=== PATIENT | male | born 1950 | race Caucasian/White ===

== ENCOUNTER 2020-07-18 10:52 | Outpatient (RCR) | payer MEDICARE, OTHER, SELFPAY | END 2020-08-02 14:07 | disposition home or self-care (01) | LOC: HO.WCC 10:52 | PROVIDERS: PCP Physician Assistant; Visit Provider Physician Assistant Surgical | DX: E11.621 Type 2 diabetes mellitus with foot ulcer (principal); L97.512 Non-pressure chronic ulcer of other part of right foot with fat layer exposed; M20.41 Other hammer toe(s) (acquired), right foot; Z86.711 Personal history of pulmonary embolism | CPT/HCPCS: 11042; 99212 ==

== ENCOUNTER 2022-07-10 12:37 | Outpatient (RCR) | payer MEDICARE, OTHER, SELFPAY | END 2022-08-07 13:37 | disposition home or self-care (01) | LOC: HO.WCC 12:37 | PROVIDERS: PCP Family Medicine; Visit Provider Surgery | DX: Z09 Encounter for follow-up examination after completed treatment for conditions other than malignant neoplasm (principal); R60.0 Localized edema; B35.8 Other dermatophytoses; Z86.31 Personal history of diabetic foot ulcer | CPT/HCPCS: 99212; 99213 ==

== ENCOUNTER 2024-05-25 11:03 | Outpatient (AMB) | payer MEDICARE, OTHER, SELFPAY ==
[2024-05-25 11:24] VITALS: BP 143/62; PULSE 78; O2SAT 96; BMI 28.7
--- NOTE | 2024-05-25 11:24 | A.OFFVIS_ITS ---
Vital Signs 3 05/25/24 11:24 Height 5 ft 8 in Weight 189 lb BMI 28.7 BP 143/62 H Blood Pressure Location Lt brachial Position Sitting Pulse 78 Pulse Source Pulse Oximeter Pulse Oximetry (%) 96 Oxygen Delivery Method Room Air Intake Visit Reasons: Lumbar Ridiculopathy Allergies amlodipine Adverse Reaction (Mild, Verified 05/25/24 11:36) Fatigued atenolol Adverse Reaction (Mild, Verified 05/25/24 11:36) Fatigued baclofen Adverse Reaction (Mild, Verified 05/25/24 11:36) Fatigued grapefruit Adverse Reaction (Mild, Verified 05/25/24 11:36) Fatigued lisinopril Adverse Reaction (Mild, Verified 05/25/24 11:36) Fatigued losartan Adverse Reaction (Mild, Verified 05/25/24 11:36) Fatigued orange juice Adverse Reaction (Mild, Verified 05/25/24 11:36) Fatigued oxymetazoline [From Afrin (oxymetazoline)] Adverse Reaction (Mild, Verified 05/25/24 11:36) Fatigued pineapple Adverse Reaction (Mild, Verified 05/25/24 11:36) Fatigued pregabalin [From Lyrica] Adverse Reaction (Mild, Verified 05/25/24 11:36) Sleep walking solifenacin Adverse Reaction (Mild, Verified 05/25/24 11:36) Fatigued tomato Adverse Reaction (Mild, Verified 05/25/24 11:36) Fatigued Medication List - Last Reconciled 05/25/24 by Valentina Rubio acetaminophen (Tylenol) 325 mg PO QID PRN albuterol sulfate 90 mcg/actuation 2 puffs inhalation Q4-6H PRN amitriptyline 10 mg PO DAILY aspirin 81 mg PO DAILY atorvastatin 40 mg PO DAILY bumetanide 1 mg PO DAILY cholecalciferol (vitamin D3) 125 mcg PO DAILY docusate sodium (Colace) 100 mg PO DAILY ferrous sulfate 65 mg PO magnesium oxide 400 mg PO DAILY metformin 1,000 mg PO DAILY pantoprazole 40 mg PO DAILY polyethylene glycol 3350 (Miralax) 17 grams PO DAILY HPI Comments Details: Loida is a very pleasant 74-year-old male who presents the office today for evaluation management of his chronic lower back pain. Patient reports that he has been suffering with this pain for many years. Midline lower back pain that is worse with walking, rising from a seated position. Pain is worse in the morning, least severe when he is sleeping Endorses bilateral lower leg pain, fatigue and tiredness with walking. Finds some relief with slight forward flexion position while walking Pain today is rated as 0/10 reports he will have increasing pain if you were to get up walk Most recent MRI was in 2017, diagnosed with spinal stenosis Completed physical therapy <1 year ago, continues with extensive exercise program. Attempted chiropractor without improvement of his pain. Underwent steroid injections approximately 8 months ago that gave him relief, pain is now returned and he would like to repeat his injections. Patient has tried nonsteroidal anti-inflammatory medications, Tylenol and prescription medications including Lyrica and baclofen but pain persists Denies red flag symptoms including loss of bowel, bladder or saddle anesthesia. In terms of muscle damage condition is described as shooting, stabbing, sharp, exhausting, squeezing, grabbing Pain is negatively impacting patient's enjoyment of life, general activity, mood, relationships with people, walking [facility] Medical History (Updated 05/25/24 @ 12:37 by Catie Kent APRN, ANA) Chronic cough Pulmonary embolism Anemia Diabetes type 2, controlled Sinus congestion Asthma Surgical History (Updated 05/25/24 @ 12:37 by Catie Kent APRN, LAND [employer]ASING INFORMATION CLERK) History of total right hip arthroplasty Status post right foot surgery History of left hip replacement Review of Systems Const All systems reviewed & are unremarkable except as noted in HPI and below Physical Exam Vital Signs: Last Vital Signs Pulse 78 05/25/24 11:24 BP 143/62 H 05/25/24 11:24 Pulse Ox 96 05/25/24 11:24 Oxygen Delivery Method Room Air 05/25/24 11:24 BMI result Body Mass Index 28.7 General: awake, alert, oriented. Answers questions appropriately. Fully engaged in examination. Skin: warm, dry, intact HEENT: Normocephalic. Hearing intact. Cardiac: External chest normal in appearance. Respiratory: No cough, audible wheezing or stridor. Abdomen: without gross distension. MS: No obvious swelling or deformities. Able to transition from sit to stand unassisted. Ambulates with bilaterally normal heel strike and toe off SLR negative bilaterally Minimally tender over midline lumbar vertebrae lumbar paraspinal muscles Nontender over bilateral PSIS Limited range of motion secondary to pain at 70 degrees forward flexion and 10 degrees extension Bilateral extremity strength 5/5 Negative footdrop, negative clonus Facet loading positive Neurological: Oriented to person, place, time and situation. Thought process intact. No gait abnormalities appreciated. Psychiatric: Appropriate mood and affect. Good judgment and insight. Results Reviewed Results Reviewed: Assessment & Plan Assessment & Plan (1) Spinal stenosis: Code(s): M48.00 - Spinal stenosis, site unspecified Category: Medical (2) Chronic back pain: Code(s): M54.9 - Dorsalgia, unspecified; G89.29 - Other chronic pain Category: Medical Plan MRI ordered to evaluate for worsening spinal stenosis Patient has exhausted conservative therapy including PT, home exercise program, chiropractor, prescription medications, nonsteroidal anti-inflammatory medication and previous attempts at injections Discuss at length the patient's diagnosis and treatment options. Will schedule for fluoroscopy guided bilateral L3-4 transforaminal epidural steroid injection with local anesthetic. All questions and concerns were answered, patient agrees to the plan. Follow up after MRI/injections, sooner if needed Orders: Orders 2 MR lumbar spine wo con Today M48.00 - Spinal stenosis, site unspecified Coding Level of Care Code New Pt Level 4 (57528) Diagnoses Spinal stenosis M48.00 Chronic back pain M54.9; G89.29
== END 2024-05-25 12:12 | disposition home or self-care (01) ==
PROVIDERS: PCP Family Medicine; Referring Provider Nurse Practitioner Adult Health; Visit Provider Registered Nurse Emergency
DX: M48.00 Spinal stenosis, site unspecified (principal); M54.9 Dorsalgia, unspecified; G89.29 Other chronic pain
CPT/HCPCS: 99204

== ENCOUNTER → 2024-05-25 11:03 | Outpatient (BNVA) | payer MEDICARE, OTHER, SELFPAY | PROVIDERS: PCP Family Medicine; Referring Provider Nurse Practitioner Adult Health; Visit Provider Registered Nurse Emergency | DX: M48.00 Spinal stenosis, site unspecified (principal); M54.9 Dorsalgia, unspecified; G89.29 Other chronic pain | CPT/HCPCS: 99202 ==

== ENCOUNTER 2024-07-20 06:06 | Outpatient (REF) | payer MEDICARE, OTHER, SELFPAY | END 2024-07-20 06:07 | disposition home or self-care (01) | LOC: CF 06:06 | PROVIDERS: Visit Provider Anesthesiology | DX: M48.061 Spinal stenosis, lumbar region without neurogenic claudication (principal); M51.369 Other intervertebral disc degeneration, lumbar region without mention of lumbar back pain or lower extremity pain; M54.16 Radiculopathy, lumbar region; G89.29 Other chronic pain | CPT/HCPCS: 64483; J2003; J3301; Q9967 ==

== ENCOUNTER 2024-07-20 09:55 | Outpatient (AMB) | payer MEDICARE, OTHER, SELFPAY ==
--- NOTE | 2024-07-20 09:57 | A.OFFVIS_ITS ---
Vital Signs 07/20/24 10:42 07/20/24 10:42 Height 5 ft 8 in 5 ft 8 in Weight 189 lb 189 lb BMI 28.7 28.7 BP 152/73 H 143/73 H Blood Pressure Location Lt brachial Lt brachial Position Sitting Sitting Respiration 16 16 Pulse 67 88 Pulse Source Pulse Oximeter Pulse Oximeter Pulse Oximetry (%) 97 97 Oxygen Delivery Method Room Air Room Air Comment pre-op post-op Intake Visit Reasons: BILATERAL L3, L4 TFESI Allergies amlodipine Adverse Reaction (Mild, Verified 07/20/24 10:43) Fatigued atenolol Adverse Reaction (Mild, Verified 07/20/24 10:43) Fatigued baclofen Adverse Reaction (Mild, Verified 07/20/24 10:43) Fatigued grapefruit Adverse Reaction (Mild, Verified 07/20/24 10:43) Fatigued lisinopril Adverse Reaction (Mild, Verified 07/20/24 10:43) Fatigued losartan Adverse Reaction (Mild, Verified 07/20/24 10:43) Fatigued orange juice Adverse Reaction (Mild, Verified 07/20/24 10:43) Fatigued oxymetazoline [From Afrin (oxymetazoline)] Adverse Reaction (Mild, Verified 07/20/24 10:43) Fatigued pineapple Adverse Reaction (Mild, Verified 07/20/24 10:43) Fatigued pregabalin [From Lyrica] Adverse Reaction (Mild, Verified 07/20/24 10:43) Sleep walking solifenacin Adverse Reaction (Mild, Verified 07/20/24 10:43) Fatigued tomato Adverse Reaction (Mild, Verified 07/20/24 10:43) Fatigued PFSH Medical History (Updated 05/25/24 @ 12:37 by Catie Kent APRN, BUSINESS SYSTEM CONSULTANT) Chronic cough Pulmonary embolism Anemia Diabetes type 2, controlled Sinus congestion Asthma Surgical History (Updated 05/25/24 @ 12:37 by Catie Kent APRN, BUSINESS SYSTEM CONSULTANT) History of total right hip arthroplasty Status post right foot surgery History of left hip replacement Physical Exam Vital Signs: Last Vital Signs Pulse 88 07/20/24 10:42 Resp 16 07/20/24 10:42 BP 143/73 H 07/20/24 10:42 Pulse Ox 97 07/20/24 10:42 Oxygen Delivery Method Room Air 07/20/24 10:42 BMI result Body Mass Index 28.7 Assessment & Plan Assessment & Plan (1) Spinal stenosis: Code(s): M48.00 - Spinal stenosis, site unspecified Category: Medical (2) Chronic back pain: Code(s): M54.9 - Dorsalgia, unspecified; G89.29 - Other chronic pain Category: Medical Plan: According to the new MRI report obtained by our office the most advanced stenosis patient experienced at L4-5 interspace and therefore we decided to perform procedure at L4-5 transforaminal bilateral epidural steroid injection. Plan Transforaminal bilateral L4-5 transforaminal epidural steroid injection. Informed consent was thoroughly explained to the patient before the procedure.? The patient came to the operating room.? She was positioned prone on operating table with a pillow under his abdomen.? Time-out was performed delineating correct site and side of the procedure, nature of the injection, name and date of of the patient. The lower back of the patient was prepped with ChloraPrep and draped with sterile utility towels.? C-arm was brought over the operating field and sq picture o L4 vertebra was demonstrated on the screen.? The right side was chosen as the initial side of the injection.? Tilting machine ipsilateral to the right at the level of L4 the most prominent picture of the right pedicle was obtained on the screen.? 3 mm below the level of the lowest point of the pedicle projection to the skin small amount of lidocaine 1% 3 cc was injected to anesthetize the skin.? After that 5 in 22 gauge Quincke point needle was inserted through the skin wheal and was advanced toward L4-L5 foramina on anterior posterior , lateral and oblique views intermittently.? When needle entered foramina injection of the contrast performed demonstrating epidural and perineural spread of the contrast. No intrathecal and no intravascular spread of the contrast was noted on the screen. No intravascular nor intrathecal spread of the contrast was noted. After that preservative-free lidocaine 1% 3 mL mixed with Kenalog 230 mg was injected into the needle. Upon completion of the injection the needle was removed and the procedure was repeated at the left L4- L5 foramina in the mirroring fashion. Upon completion of the procedure the needle was removed and sterile bandaids were applied. Patient tolerated procedure well she was taken outside of the operating room where he recovered uneventfully.? He went home without immediate complications Orders: Orders FL guidance in treatment room Today M48.00 - Spinal stenosis, site unspecified Coding Level of Care Code Procedure Only Diagnoses Spinal stenosis M48.00 Chronic back pain M54.9; G89.29
[2024-07-20 10:42] VITALS: BP 143/73; BP 152/73; PULSE 67; PULSE 88; RESP 16; O2SAT 97; BMI 28.7
== END 2024-07-20 11:50 | disposition home or self-care (01) ==
LOC: HO.PMCPRC 09:55
PROVIDERS: PCP Family Medicine; Visit Provider Anesthesiology
DX: M54.16 Radiculopathy, lumbar region (principal)
CPT/HCPCS: 64483

== ENCOUNTER 2024-08-13 09:50 | Outpatient (AMB) | payer MEDICARE, OTHER, SELFPAY ==
[2024-08-13 10:02] VITALS: BP 136/62; PULSE 73; O2SAT 97; BMI 29.2
--- NOTE | 2024-08-13 10:02 | A.OFFVIS_ITS ---
Vital Signs 3 08/13/24 10:02 Height 5 ft 8 in Weight 192 lb BMI 29.2 BP 136/62 Blood Pressure Location Lt brachial Position Sitting Pulse 73 Pulse Source Pulse Oximeter Pulse Oximetry (%) 97 Oxygen Delivery Method Room Air Intake Visit Reasons: BILATERAL L3, L4 TFESI/07/20/24 Allergies amlodipine Adverse Reaction (Mild, Verified 08/13/24 10:03) Fatigued atenolol Adverse Reaction (Mild, Verified 08/13/24 10:03) Fatigued baclofen Adverse Reaction (Mild, Verified 08/13/24 10:03) Fatigued grapefruit Adverse Reaction (Mild, Verified 08/13/24 10:03) Fatigued lisinopril Adverse Reaction (Mild, Verified 08/13/24 10:03) Fatigued losartan Adverse Reaction (Mild, Verified 08/13/24 10:03) Fatigued orange juice Adverse Reaction (Mild, Verified 08/13/24 10:03) Fatigued oxymetazoline [From Afrin (oxymetazoline)] Adverse Reaction (Mild, Verified 08/13/24 10:03) Fatigued pineapple Adverse Reaction (Mild, Verified 08/13/24 10:03) Fatigued pregabalin [From Lyrica] Adverse Reaction (Mild, Verified 08/13/24 10:03) Sleep walking solifenacin Adverse Reaction (Mild, Verified 08/13/24 10:03) Fatigued tomato Adverse Reaction (Mild, Verified 08/13/24 10:03) Fatigued Medication List - Last Reconciled 08/13/24 by Valentina Rubio acetaminophen (Tylenol) 325 mg PO QID PRN albuterol sulfate 90 mcg/actuation 2 puffs inhalation Q4-6H PRN amitriptyline 10 mg PO DAILY aspirin 81 mg PO DAILY atorvastatin 40 mg PO DAILY bumetanide 1 mg PO DAILY cholecalciferol (vitamin D3) 125 mcg PO DAILY docusate sodium (Colace) 100 mg PO DAILY ferrous sulfate 65 mg PO magnesium oxide 400 mg PO DAILY metformin 1,000 mg PO DAILY pantoprazole 40 mg PO DAILY polyethylene glycol 3350 (Miralax) 17 grams PO DAILY HPI Comments Details: Patient presents back to the office today for follow-up, 1 month status post bilateral L3-4 transforaminal epidural steroid injection He reports ?a little better? after the procedure but still having pain. Denies significant improvement in his symptoms Continues with bilateral leg pain, fatigue with walking that improves with rest. Pain that improves with forward flexion. Prior: Loida is a very pleasant 74-year-old male who presents the office today for evaluation management of his chronic lower back pain. Patient reports that he has been suffering with this pain for many years. Midline lower back pain that is worse with walking, rising from a seated position. Pain is worse in the morning, least severe when he is sleeping Endorses bilateral lower leg pain, fatigue and tiredness with walking. Finds some relief with slight forward flexion position while walking Pain today is rated as 0/10 reports he will have increasing pain if you were to get up walk Most recent MRI was in 2017, diagnosed with spinal stenosis Completed physical therapy <1 year ago, continues with extensive exercise program. Attempted chiropractor without improvement of his pain. Underwent steroid injections approximately 8 months ago that gave him relief, pain is now returned and he would like to repeat his injections. Patient has tried nonsteroidal anti-inflammatory medications, Tylenol and prescription medications including Lyrica and baclofen but pain persists Denies red flag symptoms including loss of bowel, bladder or saddle anesthesia. In terms of muscle damage condition is described as shooting, stabbing, sharp, exhausting, squeezing, grabbing Pain is negatively impacting patient's enjoyment of life, general activity, mood, relationships with people, walking [facility] Medical History (Updated 08/13/24 @ 12:48 by Catie Kent APRN, ANA) Chronic cough Pulmonary embolism Anemia Diabetes type 2, controlled Sinus congestion Asthma Surgical History (Updated 05/25/24 @ 12:37 by Catie Kent APRN, ANA) History of total right hip arthroplasty Status post right foot surgery History of left hip replacement Review of Systems Const All systems reviewed & are unremarkable except as noted in HPI and below Physical Exam Vital Signs: Last Vital Signs Pulse 73 08/13/24 10:02 BP 136/62 08/13/24 10:02 Pulse Ox 97 08/13/24 10:02 Oxygen Delivery Method Room Air 08/13/24 10:02 BMI result Body Mass Index 29.2 General: awake, alert, oriented. Answers questions appropriately. Fully engaged in examination. Skin: warm, dry, intact HEENT: Normocephalic. Hearing intact. Cardiac: External chest normal in appearance. Respiratory: No cough, audible wheezing or stridor. Abdomen: without gross distension. MS: No obvious swelling or deformities. Able to transition from sit to stand unassisted. Ambulates with bilaterally normal heel strike and toe off Neurological: Oriented to person, place, time and situation. Thought process intact. No gait abnormalities appreciated. Psychiatric: Appropriate mood and affect. Good judgment and insight. Results Reviewed Results Reviewed: 06/15/2024 Assessment & Plan Assessment & Plan (1) Spinal stenosis: Code(s): M48.00 - Spinal stenosis, site unspecified Category: Medical (2) Chronic back pain: Code(s): M54.9 - Dorsalgia, unspecified; G89.29 - Other chronic pain Category: Medical (3) Lumbar stenosis with neurogenic claudication: Code(s): M48.062 - Spinal stenosis, lumbar region with neurogenic claudication Category: Medical Plan Patient presented to the office today for follow-up, 1 month status post bilateral L3-4 transforaminal epidural steroid injection. He reports minimal improvement in his symptoms after the injection. Patient has exhausted conservative therapy including PT, home exercise program, chiropractor, prescription medications, nonsteroidal anti-inflammatory medication and previous attempts at injections Referral placed for neuro spine Patient will follow up after neuro spine. We discussed options today for Vertiflex versus spinal cord stimulator. He was given pamphlets to review. All questions and concerns were answered, patient agrees to the plan. Follow up after neuro spine new bowel, sooner if needed Orders: Referrals 2 Neuro Spine Referral G89.29 - Other chronic pain, M48.00 - Spinal stenosis, site unspecified, M48.062 - Spinal stenosis, lumbar region with neurogenic claudication, M54.9 - Dorsalgia, unspecified Coding Level of Care Code Est Pt Level 3 (12154) Complex EM visit Add On G2211 Diagnoses Spinal stenosis M48.00 Chronic back pain M54.9; G89.29 Lumbar stenosis with neurogenic claudication M48.062
== END 2024-08-13 10:39 | disposition home or self-care (01) ==
PROVIDERS: PCP Family Medicine; Visit Provider Registered Nurse Emergency
DX: M48.00 Spinal stenosis, site unspecified (principal); M54.9 Dorsalgia, unspecified; G89.29 Other chronic pain; M48.062 Spinal stenosis, lumbar region with neurogenic claudication
CPT/HCPCS: 99213; G2211

== ENCOUNTER → 2024-08-13 09:50 | Outpatient (BNVA) | payer MEDICARE, OTHER, SELFPAY | PROVIDERS: PCP Family Medicine; Visit Provider Registered Nurse Emergency | DX: M48.00 Spinal stenosis, site unspecified (principal); M54.9 Dorsalgia, unspecified; M48.062 Spinal stenosis, lumbar region with neurogenic claudication; G89.29 Other chronic pain | CPT/HCPCS: 99212 ==

== ENCOUNTER 2024-08-16 10:13 | Outpatient (REF) | payer MEDICARE, OTHER, SELFPAY ==
--- NOTE | ~2024-08-16 | XR_ITS ---
EXAMINATION: X-ray lumbar spine. INDICATION: Spinal stenosis, lumbar region with neurogenic claudication. COMPARISON: No priors. TECHNIQUE: AP, lateral views. Coned lateral view L5-S1. Lateral view of the renal flexion and extension position. FINDINGS: Grade 1 anterolisthesis at L4-5 and L5-S1 levels with worsening during flexion and improving in extension without correction. Multilevel marginal osteophyte formation, endplate sclerosis and decreased intervertebral disc height, lower thoracic spine. No acute cortical disruption. No lytic or blastic lesions. Facet joint hypertrophy at L5-S1. Vascular calcifications. Metallic prosthesis in both hips not fully included in the [id number]. XR/XR lumbar spine 4V min IMPRESSION: Multilevel thoracolumbar spondylosis and grade 1 anterolisthesis L4-5 and L5-S1 levels with likely instability. Electronically signed by: Janes Gray MD 08/27/2024 03:21 PM FADY
== END 2024-08-16 10:14 | disposition home or self-care (01) ==
LOC: HO.HOSX 10:13
PROVIDERS: PCP Family Medicine; Referring Provider Registered Nurse Emergency; Visit Provider Physician Assistant
DX: M48.062 Spinal stenosis, lumbar region with neurogenic claudication (principal); M47.816 Spondylosis without myelopathy or radiculopathy, lumbar region
CPT/HCPCS: 72110; 99202

== ENCOUNTER 2024-08-16 10:13 | Outpatient (AMB) | payer MEDICARE, OTHER, SELFPAY ==
--- NOTE | 2024-08-16 10:33 | A.SPINEOV_ITS ---
Vital Signs 08/16/24 10:46 Height 5 ft 8 in Weight 192 lb BMI 29.2 Intake Visit Reasons: Back pain Intake Note: Mr. Gustafson is here today c/o back of the legs pain that radiate to the feet with numbness. Fast Food Crew Member Required: No Allergies amlodipine Adverse Reaction (Mild, Verified 08/13/24 10:03) Fatigued atenolol Adverse Reaction (Mild, Verified 08/13/24 10:03) Fatigued baclofen Adverse Reaction (Mild, Verified 08/13/24 10:03) Fatigued grapefruit Adverse Reaction (Mild, Verified 08/13/24 10:03) Fatigued lisinopril Adverse Reaction (Mild, Verified 08/13/24 10:03) Fatigued losartan Adverse Reaction (Mild, Verified 08/13/24 10:03) Fatigued orange juice Adverse Reaction (Mild, Verified 08/13/24 10:03) Fatigued oxymetazoline [From Afrin (oxymetazoline)] Adverse Reaction (Mild, Verified 08/13/24 10:03) Fatigued pineapple Adverse Reaction (Mild, Verified 08/13/24 10:03) Fatigued pregabalin [From Lyrica] Adverse Reaction (Mild, Verified 08/13/24 10:03) Sleep walking solifenacin Adverse Reaction (Mild, Verified 08/13/24 10:03) Fatigued tomato Adverse Reaction (Mild, Verified 08/13/24 10:03) Fatigued Physical Exam Vital Signs: BMI result Body Mass Index 29.2 Assessment & Plan Assessment & Plan (1) Lumbar stenosis with neurogenic claudication: Code(s): M48.062 - Spinal stenosis, lumbar region with neurogenic claudication Category: Medical Plan Dear Catie, Thank you for referring Mr Gustafson to our office today. 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 It has been going on for many years no, he has been steadily getting worse, especially over the last 3-4 months. He has done conservative treatment in the form of physical therapy. He has also done [id number] medications like Tylenol and ibuprofen. He underwent cortisone injections at the L4 level and this did have a transient relief of his symptoms but ultimately the symptoms returned. He has also been through [facility] as well as [facility] [facility]. He had an MRI done at [facility] showing severe stenosis at L3-4 and L4-5 and was sent today see us for evaluation. He has no back pain. PMH: History of a chronic cough of unknown etiology which he uses albuterol to treat. He is a diabetic but his A1c is very well controlled, he was 6.1 at his last follow-up. Remote history of a pulmonary embolus, unclear what the exact source of that was, could have been a long plane flight. He was placed on Coumadin for 6 months and has not had any issues since. Bilateral total hip replacement. He had hammertoes fixed on both feet. On the right foot he was left with some nerve damage. He had a removal of a left lung polyp. History of cholecystectomy, TURP. Denies any history of cardiac disease, stroke, liver disease, kidney disease, major abdominal surgery, coagulopathies, cancer. Social hx: He does not smoke, drink use any recreational drugs Medications: Protonix, Bumex, metformin, magnesium, vitamin-E, iron, baby as pirin, Lipitor, Tylenol, Ventolin Allergies: None Physical exam: He is awake alert oriented no acute distress, he is able to stand and walk independently down the hallway, slightly unsteady gait with tandem gait testing. Strength in the upper and lower extremities is full. Normal reflexes in the upper extremities, negative Bhaskar's sign. Lower extremity reflexes are absent at the patella and the Achilles. No clonus in the ankles. Imaging review: [facility] lumbar MRI done this year in 2023 showing transitional anatomy, I am considering the last formed disc L5-S1, with stenosis severe at L3-4 and moderate to severe at L4-5. There was significant facet hypertrophy at both levels and there maybe a small synovial cyst on the left L4- 5 side. Impression: 74-year-old male presents with bilateral lower extremity cramping and pain down his legs with standing and walking, better when he sits. He has no back pain. MRI shows severe stenosis at L3-4 and L4-5. Typically this is something Dr. Otero would treat with lumbar decompression since the patient has failed conservative management. We did briefly discuss that, reviewing the procedure, risks, benefits etc.. The patient would like to think about it and get back to me. I told him I would review the imaging with Dr. Otero in the meantime just to finalize a plan. We also talked about the fact that there is some facet hypertrophy at both levels where there is stenosis and possibly a small synovial cyst at L4-5 so I would like to get standing flexion-extension x- rays to rule out instability. I will call the patient back once I have a chance to speak with Dr. Otero and review all the imaging. We quoted success rate at 90% for improvement in leg pain. Thank you for allowing us to care for your patient. The total time spent with this visit with this patient was 45 minutes reviewing history, physical exam, lumbar imaging review, and implementation of treatment plan or further diagnostic testing You Otero MD,PhD [facility] Orders: Orders XR lumbar spine 4V min Today M48.062 - Spinal stenosis, lumbar region with neurogenic claudication Coding Level of Care Code New Pt Level 4 (89687) Diagnoses Lumbar stenosis with neurogenic claudication M48.062
[2024-08-16 10:46] VITALS: BMI 29.2
== END 2024-08-16 11:26 | disposition home or self-care (01) ==
PROVIDERS: PCP Family Medicine; Referring Provider Registered Nurse Emergency; Visit Provider Physician Assistant
DX: M48.062 Spinal stenosis, lumbar region with neurogenic claudication (principal)
CPT/HCPCS: 99204

== ENCOUNTER → 2024-08-16 11:30 | Outpatient (BNV) | payer MEDICARE, OTHER, SELFPAY | PROVIDERS: PCP Family Medicine; Referring Provider Registered Nurse Emergency; Visit Provider Radiology Diagnostic Radiology | DX: M47.895 Other spondylosis, thoracolumbar region (principal) | CPT/HCPCS: 72110 ==